=== PATIENT | male | born 1960 | race African-American/Black ===

== ENCOUNTER 2021-12-13 13:21 | Emergency (ER) | payer MEDICAID ==
[~2021-12-13] VITALS: Ht 175.3 cm; Wt 81.0 kg
[2021-12-13 14:53] LABS: BASOPHILS % 0.6 % (0.0-2.0); EOSINOPHILS % 1.4 % (0.0-5.0); HEMATOCRIT. 40.2 % (42.0-52.0); HEMOGLOBIN. 13.4 g/dL (14.0-18.0); LYMPHOCYTES % 29.1 % (20.0-50.0); MEAN CORPUSCULAR HEMOGLOBIN 30.6 pg (28.0-32.0); MEAN CORPUSCULAR VOLUME 92.2 fL (80.0-94.0); MEAN PLATELET VOLUME 6.7 fl (7.4-10.4); MONOCYTES % 6.5 % (2.0-8.0); NEUTROPHILS % 62.4 % (40.0-76.0); PLATELET 262 x1000/uL (130-400); RED BLOOD CELL COUNT 4.36 mill/uL (4.7-6.1); RED CELL DISTRIBUTION WIDTH 14.3 % (11.6-14.6)
[2021-12-13 15:00] LABS: CHLORIDE 110 mEq/L (98-107)
[2021-12-13] MEDS ORDERED: IBUP-2741 MT (17:52)
[2021-12-13 18:29] VITALS: BP 150/95
== END 2021-12-13 18:30 | disposition home or self-care (01) ==
LOC: ER 13:21
DX: R55 Syncope and collapse (principal); I10 Essential (primary) hypertension
CPT/HCPCS: 36415; 71045; 72100; 80053; 85025; 99285

== ENCOUNTER 2024-12-05 21:26 | Emergency (ER) | payer MEDICAID, MEDICARE ==
[~2024-12-05] VITALS: Ht 175.3 cm; Wt 79.0 kg
[~2024-12-05 21:26] MED LIST: IBUP-2741 MT
[2024-12-05 22:04] VITALS: BP 158/89; O2SAT 98
[2024-12-05 22:06] VITALS: PULSE 89; RESP 18; TEMP 36.9; O2SAT 98
== END 2024-12-06 03:40 | disposition left against medical advice (07) ==
LOC: ER 21:26
DX: Z53.21 Procedure and treatment not carried out due to patient leaving prior to being seen by health care provider (principal)

== ENCOUNTER 2025-04-09 11:30 | Emergency (ER) | payer MEDICARE ==
[~2025-04-09] VITALS: Ht 180.3 cm; Wt 82.0 kg
[~2025-04-09 11:30] MED LIST changes: +ATOR40TA70 PO; +DULO60CA64 PO; +GABA-529 PO; +LOSA100T33 PO; +MIRT-89 PO; +TAMS-54
[2025-04-09 11:32] VITALS: BP 186/111; PULSE 83; RESP 20; TEMP 36.7; O2SAT 98
== END 2025-04-09 13:40 | disposition left against medical advice (07) ==
LOC: ER 11:30
DX: J02.9 Acute pharyngitis, unspecified (principal); Z53.21 Procedure and treatment not carried out due to patient leaving prior to being seen by health care provider